=== PATIENT | female | born 1995 | race Caucasian/White ===

== ENCOUNTER 2016-07-16 13:32 | Emergency (ER) | payer MEDICAID, OTHER ==
[~2016-07-16] VITALS: Ht 167.6 cm; Wt 56.8 kg
[2016-07-16 13:39] VITALS: BP 117/66; PULSE 101; RESP 16; O2SAT 99
--- NOTE | 2016-07-16 14:00 | ED.REPORT ---
HPI-Extremity Problem Lower Date of Service Jul 16, 2016 ED Provider: George Reed PA-C [place] is an otherwise healthy 21-year-old female who presents with a chief complaint of right ankle pain. She states that the pain started suddenly when she stepped on a shoe which is lying on the floor approximately 36 hours ago. She inverted her ankle and heard a loud pop. She reports that she was able to bear some weight on the injury immediately afterwards, but not at this time. Complains of pain and bruising. Denies numbness/tingling. Denies diabetes, bleeding/clotting disorders, osteoporosis. Nursing Notes Stated Complaint: R FOOT INJURY Chief Complaint: Extremity Trauma Nursing Notes Reviewed: Yes Allergies: Coded Allergies: No Known Allergies (Unverified , 07/16/16) No Active Prescriptions or Reported Meds General Time Seen by MD: 13:46 Chief Complaint Foot injury right Past Medical History Past Medical History Denies Review of Systems Review of Systems Note: Negative unless stated otherwise in history of present illness Physical Exam General: Well appearing, well developed, well nourished, no acute distress. Right foot/ankle: Approximately 8 cm bruise on the lateral aspect of foot. Moderate swelling from mid foot to above the ankle. Tender over medial and lateral malleoli, base of fifth metatarsal, anterior talofibular ligament, calcaneofibular ligament, posterior talofibular ligament, deltoid ligament. Good range of motion in flexion and extension. DP and PT pulses appreciated. Brisk capillary refill and sensation present distal. Head: Atraumatic, normocephalic. Eyes: No scleral icterus or injection. No discharge. Vision grossly intact. ENT: Voice clear, hearing grossly intact. Respiratory: No respiratory distress, no increased work of breathing. Speaks in complete sentences. Skin: Warm and dry. Neurological: Grossly nonfocal. Psychological: alert and oriented. Speech appropriate, linear and logical. Behavior appropriate. Initial Vital Signs Vital Signs (First) Date Time Temp Pulse Resp B/P Pulse Ox O2 Delivery O2 Flow Rate FiO2 07/16/16 13:39 36.7 101 16 117/66 99 Room Air Initial VS: Reviewed, Vital signs abnormal (mild tachycardia) Interpretation & Diagnostics X-Ray Interpretation Xray Interpretation: PROCEDURE: X-RAY RIGHT FOOT COMPLETE, MINIMUM THREE VIEWS ([id number]) INDICATIONS: right foot pain FINDINGS: Bones: Mildly displaced fracture through the base of the fifth metatarsal is noted. Fracture extends into the carpal-metacarpal joint. Soft tissues: No tibiotalar joint effusion. Achilles tendon appears normal. IMPRESSION: Fifth metatarsal fracture. Interpretation / Wet Read by: Interpret - RadiologistLitzy - Deng Procedures Splint Application - Fx Mgt Splint Application- Fx Mgt: Ortho-Glass posterior leg splint right Procedure Performed by: Allied health pract Type of Immobilization: Ortho-glass Post-Procedure / Complications: Cap refill normal, Post splint vascular nl, Condition improved, Tolerated procedure well, Patient stable Re-Eval/Medical Decision Med Decision/Clinical Course Otherwise healthy 21-year-old female presents with right foot pain. X-ray reveals fracture of the fifth metatarsal. The case with Dr. Blandon, who will see her tomorrow. Requested posterior leg splint. Applied Ortho-Glass posterior leg splint, good circulation, sensation, motion afterwards. Discharged patient with instructions for [id number] analgesia and follow- up instructions. Provided return precautions. Patient understands and agrees with the plan. Discharge & Departure Impression: Primary Impression: Fracture of fifth metatarsal bone of right foot Encounter type: initial encounter Fracture type: closed Fracture alignment : nondisplaced Qualified Code: S92.354A - Nondisplaced fracture of fifth metatarsal bone, right foot, initial encounter for closed fracture Disposition: Home Discharge Condition All VS Reviewed: Yes Condition: Stable Patient Instructions: Splint Care (ED) Additional Instructions: Evaluation for right foot pain in the emergency department. X-ray reveals a fractured left fifth metatarsal bone in your right foot. I have discussed this case with our orthopedic surgeon. She would like to see you at 9:15 tomorrow morning. I will provide you with the address. Elevate the leg as much as possible. Apply ice 3-4 times a day. Do not bear weight on the foot. The pain is best treated with 600 mg of ibuprofen (Advil, Motrin) every 6 hours , or 1000 mg of acetaminophen (Tylenol) every 6 hours. These drugs can be taken at the same time for more severe pain. Follow-up with the orthopedic surgeon as scheduled. Return to emergency department for new or worsening symptoms including increasing pain, or the development of a cold/numb foot Referrals: Alex Blandon MD EDSupervising Provider for APC: Sindy Vinson MD copies to: Alex Blandon MD, Seth PA-C Jul 16, 2016 14:00
--- NOTE | 2016-07-16 15:10 | DRSVH ---
PROCEDURE: X-RAY RIGHT FOOT COMPLETE, MINIMUM THREE VIEWS ([id number]) INDICATIONS: right foot pain TECHNIQUE: 3 views of the foot were acquired. COMPARISON: None. FINDINGS: Bones: Mildly displaced fracture through the base of the fifth metatarsal is noted. Fracture extends into the carpal-metacarpal joint. Soft tissues: No tibiotalar joint effusion. Achilles tendon appears normal. IMPRESSION: Fifth metatarsal fracture. Dictated by: Lakshmi Coleman MD, PhD on 07/16/2016 at 15:08 Approved by: Lakshmi Coleman MD, PhD on 07/16/2016 at 15:08
[2016-07-16] MEDS ORDERED: Ketorolac 30 mg/mL 2 mL Inj IM ONE (15:35)
[2016-07-16 17:09] VITALS: BP 112/61; PULSE 72; RESP 20; O2SAT 99
== END 2016-07-16 17:31 | disposition home or self-care (01) ==
LOC: SED 13:32
DX: S92.354A Nondisplaced fracture of fifth metatarsal bone, right foot, initial encounter for closed fracture (principal); X50.1XXA Overexertion from prolonged static or awkward postures, initial encounter; Y93.89 Activity, other specified; Y92.89 Other specified places as the place of occurrence of the external cause; Y99.8 Other external cause status
CPT/HCPCS: 29515; 73630; 81025; 96372; 99284; J1885

== ENCOUNTER 2016-12-17 17:49 | Emergency (ER) | payer MEDICAID, OTHER ==
[~2016-12-17] VITALS: Ht 167.6 cm; Wt 56.8 kg
[2016-12-17 17:56] VITALS: BP 118/70; PULSE 63; RESP 16; O2SAT 100
--- NOTE | 2016-12-17 19:12 | ED.REPORT ---
HPI-Extremity Problem Lower Date of Service Dec 17, 2016 ED Provider: Manpreet Garcia DO Pt is a 21 year old female who presents to the ED with concerns for a right foot injury immediately prior to arrival. She reports that she was running outside in slippers, when she tripped over a metal pole. She denies any other injuries sustained. Nursing Notes Stated Complaint: POSSIBLE BROKEN TOE Chief Complaint: Extremity Trauma Nursing Notes Reviewed: Yes Allergies: Coded Allergies: No Known Allergies (Unverified , 12/17/16) No Active Prescriptions or Reported Meds General Time Seen by MD: 19:11 Chief Complaint Foot injury right Hx Obtained From: Patient Arrived By: Walk-in Onset Occurred: Just prior to arrival Symptom Duration: Since onset Caused by: Accidental Location: : Toe right 3 Quality: Painful Severity: Current: Mild Severity: Maximum: Moderate Similar Sx Previous: Yes Past Medical History Past Medical History Denies Ambulatory Status Independent Physical Exam Initial Vital Signs Vital Signs (First) Date Time Temp Pulse Resp B/P Pulse Ox O2 Delivery O2 Flow Rate FiO2 12/17/16 17:56 37.2 63 16 118/70 100 Initial VS: Reviewed General/Constitutional: Well-developed, Well-nourished Head / Eyes: Atraumatic, Normocephalic, PERRL ENT: Mucous membranes moist, Conjunctiva normal, No scleral icterus Neck: Supple, Non-tender, Full range of motion Respiratory: Breath sounds normal, Clear to auscultation, No respiratory distress Skin: Warm, Dry, No cyanosis Neurologic: Alert, Oriented, Nonfocal Lower Extremity / Pelvis / MS: Full range of motion, Neurologic intact, Vascular intact Ankle / Foot: Full range of motion, No deformity Bruising present about the right 3rd toe. Interpretation & Diagnostics X-Ray Interpretation Xray Interpretation: IMPRESSION: Nondisplaced fracture involving the third proximal phalanx. Dictated by: Jaylin Blanton M.D. on 12/17/2016 at 19:12 X-Ray Ordered: Foot right Re-Eval/Medical Decision Source of Hx: Old records Re-Evaluation/Progress : Time of Eval: 19:29 Re-Evaluation/Progress Note: Pt is rechecked and informed of her diagnosis and the plan to discharge her at this time. She understands and agrees, all questions are addressed. Counseled Regarding: Diagnosis, Lab results, Need for follow-up, When/why to return to ED Discharge & Departure Impression: Primary Impression: Toe fracture Disposition: Home Discharge Condition All VS Reviewed: Yes Condition: Stable Patient Instructions: Crutch Instructions (ED), Toe Fracture (ED) Additional Instructions: You have fractured your toe today. Keep your toes dexter taped together, and use the crutches as needed for pain management. Follow up with orthopedics for a consultation later this week. Ice the affected area. Take ibuprofen every 4-6 hours for pain. Take the pain medication, [place], for break through pain. NOTE: this is a narcotic pain medication, do not drink alcohol or drive while you are on this medication. Return if you are having worsening pain, or any other symptoms Referrals: NOPCP (PCP) Alex Blandon MD Attestation Portions of this note were transcribed by Kalina Chandra. I, Dr. Garcia personally performed the history, physical exam and medical decision-making; I reviewed and confirmed the accuracy of the information in the transcribed note. Signed by: Reddy Byrne, 12/17/2016 19:30 copies to: Alex Blandon MD, Todd P DO Dec 17, 2016 19:12 NAVARRO CHANDRA Dec 17, 2016 19:22
--- NOTE | 2016-12-17 19:15 | DRSVH ---
PROCEDURE: X-RAY RIGHT FOOT COMPLETE, MINIMUM THREE VIEWS ([id number]) INDICATIONS: right foot pain and injury TECHNIQUE: 3 views of the foot were acquired. COMPARISON: [facility], CR, XR FOOT 3VW RT, 10/01/2016, 14:24. FINDINGS: Bones: There is nondisplaced spiral fracture involving the third proximal phalanx. No suspicious bon y lesions. Bipartite medial sesamoid. Soft tissues: No tibiotalar joint effusion. Achilles tendon appears normal. IMPRESSION: Nondisplaced fracture involving the third proximal phalanx. Dictated by: Jaylin Blanton M.D. on 12/17/2016 at 19:12 Approved by: Jaylin Blanton M.D. on 12/17/2016 at 19:13
[2016-12-17] MEDS ORDERED: HYDROcodone-APAP 5-325 mg Tablet PO ONE (19:30)
== END 2016-12-17 19:41 | disposition home or self-care (01) ==
LOC: SED 17:49
DX: S92.511A Displaced fracture of proximal phalanx of right lesser toe(s), initial encounter for closed fracture (principal); W18.40XA Slipping, tripping and stumbling without falling, unspecified, initial encounter; Y93.02 Activity, running; Y99.8 Other external cause status; Y92.018 Other place in single-family (private) house as the place of occurrence of the external cause